=== PATIENT | male | born 1950 | race Caucasian/White ===

== ENCOUNTER 2022-09-20 05:57 | Inpatient (IN) | payer OTHER, MEDICARE ==
[~2022-09-20] VITALS: Ht 175.3 cm; Wt 103.5 kg
[2022-09-20] VITALS (23 sets, daily range): BP systolic 76–139; BP diastolic 38–86
[~2022-09-20 05:57] MED LIST: AZELASTINE137 MCG/01; Crutch1 EACH MISC; FLONASE ALLERG9.9 M2; GABA400 PO; HYDCHL25 PO; MELO7.5 PO; METF500 PO; NAPR220 PO; Percocet 5-3251 EACH PO; Prinivil10 MG PO; RESTORIL PO; TRAZ50 PO; Voltaren100 GM TOP; Zofran Odt4 MG SL
[2022-09-20] MEDS ORDERED: Acetaminophen650 M1 PO (12:57)
[2022-09-20] MEDS ORDERED: ACET500 PO (12:58)
[2022-09-20] MEDS ORDERED: OXYC5 PO (12:59)
--- NOTE | 2022-09-20 13:08 | NUR ---
ARRIVED FROM PACU VIA BED, AWAKE, A&OX4, DENIES ANY PAIN, L ARM IN SLING, ORIENTED TO ROOM, CALL LIGHT WITHIN REACH.
--- NOTE | 2022-09-20 14:41 | NUR ---
CARE ASSUMPTION patient arrived from pacu while this rn was at lunch. patient vital signs stable. spo2 >95% on room air. patient is alert and oriented x4. patient is able to make needs known. is at bedside. patient reports no pain, shortness of breath, or chest pain/pressure. patient is post op left shoulder surgery. patient has dressing in place, and dressing orders, see orders. patient has a ice pack to site. patient will work with therapies today, and plan is to discharge home tomorrow. see admit assessment for further detials. admit is complete. plan of care is up to date.
--- NOTE | 2022-09-20 16:48 | NUR ---
shift summary patient neuro remains unchanged. patient worked with both physical therapy and occupational therapy, see their assessment for further detials. patient is a stand by assist. patient has ice pack to left shoulder and arm remains in sling. no acute changes. plan for discharge tomorrow. call light within reach.
[2022-09-21 03:21] VITALS: BP 133/81
[2022-09-21 04:27] LABS: BASOPHILS ABSOLUTE AUTO 0.01 K/mm3 (0.00-0.23); BASOPHILS PERCENT AUTO 0 % (0-2); EOSINOPHILS PERCENT AUTO 0 % (0-6); Hematocrit 40.6 % (37.0-53.0); Hemoglobin 13.6 g/dL (13.5-17.5); IMMATURE GRAN ABSOLUTE AUTO 0.09 K/mm3 (0.00-0.10); IMMATURE GRAN PERCENT AUTO 1 % (0-1); LYMPHOCYTES ABSOLUTE AUTO 0.81 K/mm3 (0.84-5.20); LYMPHOCYTES PERCENT AUTO 4 % (21-46); MONOCYTES PERCENT AUTO 6 % (4-13); Mean Corpuscular HGB 30.8 pg (26.0-34.0); Mean Corpuscular HGB Conc 33.5 g/dL (31.5-36.5); Mean Corpuscular Volume 92 fL (80-100); Mean Platelet Volume 9.9 fL (9.1-12.4); NEUTROPHILS ABSOLUTE AUTO 16.38 K/mm3 (1.96-9.15); NEUTROPHILS PERCENT AUTO 89 % (41-73); Platelet Count 271 K/mm3 (150-400); RDW Coefficient Variation 12.4 % (11.7-14.2); RDW Standard Deviation 42.1 fL (35.1-46.3); Red Blood Cell Count 4.42 M/mm3 (4.30-5.90); White Blood Cell Count 18.39 K/mm3 (4.00-11.30)
--- NOTE | 2022-09-21 05:08 | NUR ---
SHIFT SUMMARY AOX4. VSS. POD 1-L TOTAL SHOULDER ARTHROPLASTY. REPORTS 1-3/10 PAIN IN L SHOULDER/ARM, MEDICATED c SCHEDULED TYLENOL & TORADOL- PT REPORTS PAIN RELIEF. LUCW c CLEAR BANDAGE OVER SURGICAL SITE. ABLE TO MOVE L HAND FINGERS, STATES HE IS UNABLE TO ROTATE OR FLEX L WRIST & HAS N/T TO L HAND FINGERS. L ARM IN SLING. PT UP IN RECLINER T/O NIGHT & HASNT BEEN ABLE TO SLEEP. HS CBG @295, NO COVERAGE NEEDED PER PARAMETERS. PLAN TO POSSIBLY DC HOME TODAY, CALL LIGHT IN REACH.
[2022-09-21 07:16] VITALS: BP 139/58
[2022-09-21 10:18] LABS: Bun/Creatinine Ratio 24.6 (12.0-20.0); Calcium, Blood 8.9 mg/dL (8.5-10.1); Creatinine, Blood 1.14 mg/dL (0.60-1.20); Magnesium, Blood 1.9 mg/dL (1.6-2.4); Potassium, Blood 5.1 mmol/L (3.5-5.5)
--- NOTE | 2022-09-21 10:59 | NUR ---
DISCHARGE POD 1 LTSA PT PAIN WELL CONTROLLED PER EMAR. WEARING SLING T/O SHIFT. ASKING QUESTIONS ABOUT CARE AND SLING USAGE DURING SHIFT. PT EDUCATED AND RECEPTIVE TO EDUCATION. PRESCRIPTION SENT WITH SPOUSE, PICKED UP PRIOR TO DISCHARGE. ALL BELONGINGS SENT WITH PATIENT. EXTRA AQUACEL DRESSINGS SENT. NO FURTHER QUESTIONS AT THIS TIME. ESCORTED OUT WITH WHEELCHAIR.
== END 2022-09-21 11:01 | disposition home or self-care (01) | DRG 483 ==
LOC: SURS 05:57 → PRE IP 07:30 → SURS 13:02
PROVIDERS: ADMIT Orthopaedic Surgery
PROC: 0RRK00Z Replacement of Left Shoulder Joint with Reverse Ball and Socket Synthetic Substitute, Open Approach (ICD-10-PCS; principal; 2022-09-20 07:30)
DX: S46.012A Strain of muscle(s) and tendon(s) of the rotator cuff of left shoulder, initial encounter (principal); E11.9 Type 2 diabetes mellitus without complications; I10 Essential (primary) hypertension; M19.012 Primary osteoarthritis, left shoulder; F10.90 Alcohol use, unspecified, uncomplicated; Z98.890 Other specified postprocedural states; Z90.89 Acquired absence of other organs; Z79.899 Other long term (current) drug therapy; Z79.52 Long term (current) use of systemic steroids; Z79.811 Long term (current) use of aromatase inhibitors; Z79.84 Long term (current) use of oral hypoglycemic drugs; Z79.891 Long term (current) use of opiate analgesic
CPT/HCPCS: 36415; 73030; 80048; 82947; 83735; 85025; 97110; 97116; 97161; 97166; 97530; 97535; A9270; C1713; C1776; J0171; J0690; J0735; J1885; J2250; J2371; J2704; J2795; J3010; J7120